=== PATIENT | male | born 1990 | race Caucasian/White ===

== ENCOUNTER 2025-01-23 07:59 | Emergency (ER) | payer OTHER | END 2025-01-23 08:53 | disposition home or self-care (01) | LOC: JD.ED 07:59 | DX: S30.861A Insect bite (nonvenomous) of abdominal wall, initial encounter (principal); H61.21 Impacted cerumen, right ear; Z79.899 Other long term (current) drug therapy; W57.XXXA Bitten or stung by nonvenomous insect and other nonvenomous arthropods, initial encounter | CPT/HCPCS: 99283 ==